=== PATIENT | female | born 1990 | race Caucasian/White ===

== ENCOUNTER → 2019-10-17 11:13 | Outpatient (CLI) | payer OTHER, SELFPAY ==
--- NOTE | 2019-10-17 11:20 | VDLE_ITS ---
Reason For Study: PAIN RIGHT GSV is normal. CFV is compressible, spontaneous, phasic, competent and demonstrates normal augmentation. FV is compressible, spontaneous, phasic, competent and demonstrates normal augmentation. POP V is compressible, spontaneous, phasic, competent and demonstrates normal augmentation. T/P Trunk is compressible. PTV is compressible. RT PerV is compressible. Procedure Exam performed in department. A preliminary report was called and/or faxed to AMISHA PATRICK. Interpretation Summary There is no evidence of right lower extremity deep vein thrombosis. Right great saphenous vein appears patent and compressible segmentally. Ordering Physician: AMISHA PATRICK Referring Physician: AMISHA PATRICK Performed By: Ria Vaughan, RDCS, RVT
== END ==
DX: M79.604 Pain in right leg (principal)
CPT/HCPCS: 93971